=== PATIENT | female | born 1950 | race Caucasian/White ===

== ENCOUNTER → 2023-12-07 12:10 | Outpatient (REF) | payer MEDICARE, OTHER, SELFPAY ==
[2023-12-07 13:09] LABS: % Basophils 0.6 % (0-2); % Eosinophils 1.6 % (0-6); % Immature Granulocytes 0.3 % (0-0.5); % Lymphocytes 47.2 % (20.5-51.1); % Monocytes 8.4 % (1.7-9.3); % Neutrophils 41.9 % (42.2-75.2); Absolute Eosinophils 0.1 10^3/uL (0-0.7); Absolute Lymphocytes 1.5 10^3/uL (1.2-3.4); Absolute Monocytes 0.3 10^3/uL (0.1-0.6); Absolute Neutrophils 1.4 10^3/uL (1.4-6.5); Hematocrit 37.8 % (37.0-47.0); Hemoglobin 12.9 g/dL (12.0-16.0); Mean Corp Hgb Conc. 34.1 g/dL (33.0-37.0); Mean Corpuscular Hgb 35.5 pg (27.0-31.0); Mean Corpuscular Volume 104.1 fL (81.0-99.0); Mean Platelet Volume 12.1 fL (7.4-10.4); Nucleated Red Blood Cells % 0 %; Platelet Count 191 10^3/uL (130-400); Red Blood Cell Count 3.63 10^6/uL (4.20-5.40); Red Cell Dist. Width 11.7 % (11.5-14.5); White Blood Cell Count 3.2 10^3/uL (4.8-10.8)
[2023-12-07 13:28] LABS: ALT (SGPT) 21 U/L (0-35); AST (SGOT) 29 U/L (14-36); Alkaline Phosphatase 34 U/L (38-126); Blood Urea Nitrogen 16 mg/dl (7-17); Calcium 9.5 mg/dl (8.4-10.2); Carbon Dioxide 30 mmol/L (22-30); Chloride 102 mmol/L (98-107); Glucose 85 mg/dl (70-99); HDL Cholesterol 85 mg/dl; LDL Cholesterol, Calculated 114 mg/dl; Potassium 4.5 mmol/L (3.5-5.1); Sodium 136 mmol/L (135-145); Total Bilirubin 0.8 mg/dl (0.2-1.3); Total Cholesterol 210 mg/dl (50-199); Total Protein 6.7 g/dl (6.3-8.2); Triglyceride 55 mg/dl (10-149); Very Low Density Lipoprotein 11 mg/dl (0-30); eGFR > 60.00
== END ==
LOC: REG 12:10
PROVIDERS: ATTENDING PHYSICIAN Physician Assistant
DX: R94.5 Abnormal results of liver function studies (principal); Z80.0 Family history of malignant neoplasm of digestive organs; Z91.89 Other specified personal risk factors, not elsewhere classified; M25.551 Pain in right hip; Z13.220 Encounter for screening for lipoid disorders; E78.2 Mixed hyperlipidemia
CPT/HCPCS: 36415; 80053; 80061; 85025

== ENCOUNTER → 2023-12-14 16:28 | Outpatient (REF) | payer MEDICARE, OTHER, SELFPAY ==
[2023-12-14 18:00] LABS: Hematocrit 36.2 % (37.0-47.0); Hemoglobin 12.3 g/dL (12.0-16.0); Mean Corpuscular Hgb 34.8 pg (27.0-31.0); Mean Corpuscular Volume 102.5 fL (81.0-99.0); Mean Platelet Volume 13.1 fL (7.4-10.4); Nucleated Red Blood Cells % 0 %; Platelet Count 136 10^3/uL (130-400); Red Blood Cell Count 3.53 10^6/uL (4.20-5.40); White Blood Cell Count 4.2 10^3/uL (4.8-10.8)
[2023-12-14 18:07] LABS: Absolute Neutrophils -Man Diff 2.1 10^3/uL (1.4-6.5); Band Neutrophils 0 % (0-3); Eosinophils 1 % (0-6); Lymphocytes 41 % (20-51); Monocytes 7 % (2-9); Normal RBC Morphology Yes; Platelets Checked Yes; Segmented Neutrophils 51 % (42-75); Total Cells Counted 100
[2023-12-14 18:10] LABS: Iron 122 ug/dl (37-170)
[2023-12-14 18:19] LABS: Percent Saturation 40 % (20-50); Total Iron Binding Capacity 298 ug/dl (265-497)
[2023-12-14 19:49] LABS: Folate 5.8 ng/ml (2.76-20); Vitamin B12 429 pg/ml (239-931)
== END ==
LOC: REG 16:28
PROVIDERS: ATTENDING PHYSICIAN Physician Assistant
DX: R79.89 Other specified abnormal findings of blood chemistry (principal); R26.89 Other abnormalities of gait and mobility
CPT/HCPCS: 36415; 82607; 82728; 82746; 83540; 83550; 85025

== ENCOUNTER → 2023-12-17 14:59 | Outpatient (REF) | payer MEDICARE, OTHER, SELFPAY | LOC: HWRAD 14:59 | PROVIDERS: ATTENDING PHYSICIAN Physician Assistant | DX: N95.9 Unspecified menopausal and perimenopausal disorder (principal); Z12.31 Encounter for screening mammogram for malignant neoplasm of breast | CPT/HCPCS: 77063; 77067; 77080 ==

== ENCOUNTER → 2023-12-27 08:55 | Outpatient (REF) | payer MEDICARE, OTHER, SELFPAY | LOC: WDC 08:55 | PROVIDERS: ATTENDING PHYSICIAN Physician Assistant | DX: R92.8 Other abnormal and inconclusive findings on diagnostic imaging of breast (principal) | CPT/HCPCS: 76642 ==

== ENCOUNTER → 2023-12-27 09:46 | Outpatient (REF) | payer MEDICARE, OTHER, SELFPAY | LOC: RAD 09:46 | PROVIDERS: ATTENDING PHYSICIAN Physician Assistant | DX: R92.8 Other abnormal and inconclusive findings on diagnostic imaging of breast (principal); K70.9 Alcoholic liver disease, unspecified | CPT/HCPCS: 76700 ==

== ENCOUNTER → 2024-02-09 11:44 | Outpatient (REF) | payer MEDICARE, OTHER, SELFPAY ==
[2024-02-09 14:04] LABS: Calcium 9.7 mg/dl (8.4-10.2)
[2024-02-09 14:23] LABS: Vitamin D, 25-OH*** 47.3 ng/mL (30-80)
[2024-02-09 15:01] LABS: Urine Calcium 5.5 mg/dl
[2024-02-09 15:14] LABS: 24 Hour Urine Calcium 93.5 mg/day; 24 Hour Urine Total Volume 1700 ml
[2024-02-09 15:56] LABS: Intact PTH 64.3 pg/ml (13.6-85.8)
[2024-02-09 23:30] LABS: IgA 185 mg/dl (70-400)
[2024-02-12 00:21] LABS: Endomysial IgA Antibody Titer <1:10 (<1:10)
== END ==
LOC: REG 11:44
PROVIDERS: ATTENDING PHYSICIAN Internal Medicine Rheumatology; FAMILY PHYSICIAN Physician Assistant
DX: M81.0 Age-related osteoporosis without current pathological fracture (principal); R94.6 Abnormal results of thyroid function studies
CPT/HCPCS: 36415; 81050; 82306; 82340; 82784; 83516; 83970; 84443; 86231

== ENCOUNTER 2024-04-25 19:34 | Emergency (ER) | payer MEDICARE, OTHER, SELFPAY ==
[2024-04-25 19:36] VITALS: BP 110/58
--- NOTE | 2024-04-25 21:06 | ED.GENMED ---
History of Present Illness
General
Chief Complaint: Skin Surface Trauma
Source: patient
Exam Limitations: none
Time Seen by Provider: 04/25/24 20:30
Nursing documentation reviewed up to this point in time: agreed with
History of Present Illness
History of Present Illness:
73-year-old female presenting to the emergency department today with concerns of a laceration to her left index finger that occurred when she was cooking at home prior to arrival she claims that the knife was very clean. She claims that she would
not like a tetanus shot at this point and has had them in the past. Denies any history of immunosuppression. Denies any numbness or weakness.
Past History
Past History
ED Past Medical History: None
ED Past Surgical History:
Social History
Tobacco: Non-smoker
Personal:
Living: with family
Review of Systems
Review of Systems
Allergies reviewed?: Yes
All Other Systems: ROS reviewed and negative except as documented in HPI and ROS
Phy Exam
Physical Exam
Physical Exam:
GENERAL: Alert , in no apparent distress
EYE: pupils equal and reactive
NECK: Supple, no significant adenopathy.
ENT: o/p clr, mmm.
CARDIAC: Regular rate and rhythm .
LUNGS: Clear breath sounds bilaterally, no acute respiratory distress, no wheezes/rales/rhonchi
ABDOMEN: Soft, without focal tenderness, no r/g, no cvat
NEUROLOGICAL: Alert and oriented, no focal neuro deficits
SKIN: 1.5 cm distal index finger laceration subcutaneous in depth warm and dry, skin intact.
MUSCULOSKELETAL: No edema, well perfused.
PSYCH: Normal and appropriate interaction.
Course
Vital Signs
Initial and Last Documented VS:
Initial Vital Signs
Temp Pulse Resp BP Pulse Ox
97.8 F 62 18 110/58 98
04/25/24 19:36 04/25/24 19:36 04/25/24 19:36 04/25/24 19:36 04/25/24 19:36
Last Documented Vital Signs
Temp Pulse Resp BP Pulse Ox
97.8 F 62 18 110/58 98
04/25/24 19:36 04/25/24 19:36 04/25/24 19:36 04/25/24 19:36 04/25/24 19:36
Procedures
Laceration Closure
Left Distal Second Finger:
Status of Wound: clean
Size of Wound in cm: 1.5
Description of Wound Edges: sharp
Preparation: cleaned with saline
Anesthesia: Digital-Regional
Revision/Debridement: routine- no revision and irrigate-direct pressure
Wound exploration: explored to base- no FB and no tendon involvement
Type of Closure: single layer closure
Skin Closure Material: 4-0 nylon
Number of sutures: 4
MDM/Problems Addressed
MDM/Problems Addressed:
73-year-old female presenting to the emergency department today with concerns of a laceration to her distal left index finger. Patient is right-handed she is refusing a tetanus shot though this was explained to her here the CDC recommendation.
Otherwise neuro vastly intact. Explored to its base no signs of foreign body does not track distal to the any tendon or bone. Cleaned thoroughly closed with 4 stitches will need follow-up in 12 to 14 days for suture removal. Return precautions
given.
*Critical Care Note
Total Time (30-74mins, 75-104mins- exclusive of procedures): Not Applicable
ED Attending Note
-
Portions of this chart may have been created with voice recognition software.� Occasional wrong word or��sound alike� substitutions may have occurred due to the inherent limitations of voice recognition software.
Discharge Plan
Departure
Patient Disposition: Home (Routine Discharge)
Date of Disposition: 04/25/24
Time of Disposition: 21:37
Patient with high blood pressure during this ER visit?: No
Condition: Good
Covid-19: Not Applicable
Discharge Problem:
Finger laceration
Instructions: Laceration Repair With Stitches (DC)
Prescriptions:
No Action
Fish Oil
1 tab PO DAILY
hydrocodone-acetaminophen 1 TABLET tablet
1 tab PO Q4HPRN PRN (Reason: pain) Qty: 10 0RF
Referrals:
Paul Portillo MD [Family Provider] -
Activity Restrictions/Additional Instructions:
You came to the emergency department today with concerns of a finger laceration. This was closed with 4 sutures. Please keep the area clean covered and follow-up in 12 to 14 days for suture removal. Return to the emergency department for any
worsening, new or concerning symptoms.
Interventions
Interventions:
*Risk Screen - Suicide Last Done: 04/25/24 19:36
*Neglect/Abuse Screening Last Done: 04/25/24 19:36
ED-Skin Assessment Last Done: 04/25/24 20:16
Discharge Date and Time
Print Language: LATVIAN
== END 2024-04-25 21:42 | disposition home or self-care (01) ==
LOC: EMR 19:34
PROVIDERS: EMERGENCY PHYSICIAN Emergency Medicine; FAMILY PHYSICIAN Internal Medicine
DX: S61.211A Laceration without foreign body of left index finger without damage to nail, initial encounter (principal); W26.0XXA Contact with knife, initial encounter; Y93.9 Activity, unspecified
CPT/HCPCS: 99282; 12001

== ENCOUNTER → 2024-10-12 16:02 | Outpatient (REF) | payer MEDICARE, OTHER, SELFPAY ==
[2024-10-12 16:59] LABS: Blood Urea Nitrogen 20 mg/dl (7-17); Calcium 9.8 mg/dl (8.4-10.2); Carbon Dioxide 29 mmol/L (22-30); Chloride 99 mmol/L (98-107); Glucose 87 mg/dl (70-99); Potassium 4.8 mmol/L (3.5-5.1); Sodium 137 mmol/L (135-145); eGFR > 60.00
== END ==
LOC: CLAB 16:02
PROVIDERS: ATTENDING PHYSICIAN Orthopaedic Surgery
DX: Z01.818 Encounter for other preprocedural examination (principal)
CPT/HCPCS: 36415; 80048

== ENCOUNTER → 2024-10-13 11:58 | Outpatient (REF) | payer MEDICARE, OTHER, SELFPAY ==
[2024-10-13 13:14] LABS: % Basophils 0.9 % (0-2); % Eosinophils 1.7 % (0-6); % Lymphocytes 45.7 % (20.5-51.1); % Monocytes 6.5 % (1.7-9.3); % Neutrophils 45.2 % (42.2-75.2); Absolute Eosinophils 0.1 10^3/uL (0-0.7); Absolute Lymphocytes 1.6 10^3/uL (1.2-3.4); Absolute Monocytes 0.2 10^3/uL (0.1-0.6); Absolute Neutrophils 1.6 10^3/uL (1.4-6.5); Hematocrit 39.6 % (37.0-47.0); Hemoglobin 13.2 g/dL (12.0-16.0); Mean Corp Hgb Conc. 33.3 g/dL (33.0-37.0); Mean Corpuscular Hgb 34.9 pg (27.0-31.0); Mean Corpuscular Volume 104.8 fL (81.0-99.0); Mean Platelet Volume 11.9 fL (7.4-10.4); Nucleated Red Blood Cells % 0 %; Platelet Count 210 10^3/uL (130-400); Red Blood Cell Count 3.78 10^6/uL (4.20-5.40); Red Cell Dist. Width 12.2 % (11.5-14.5); White Blood Cell Count 3.5 10^3/uL (4.8-10.8)
[2024-10-13 15:55] LABS: Absolute Neutrophils -Man Diff 1.3 10^3/uL (1.4-6.5); Band Neutrophils 0 % (0-3); Lymphocytes 54 % (20-51); Monocytes 7 % (2-9); Normal RBC Morphology Yes; Platelets Checked Yes; Segmented Neutrophils 39 % (42-75); Total Cells Counted 100
== END ==
LOC: REG 11:58
PROVIDERS: ATTENDING PHYSICIAN Orthopaedic Surgery; FAMILY PHYSICIAN Internal Medicine
DX: Z01.818 Encounter for other preprocedural examination (principal)
CPT/HCPCS: 36415; 85025